=== PATIENT | male | born 1950 | race Caucasian/White ===

== ENCOUNTER → 2017-10-18 | Day surgery (SDC) | payer MEDICARE, OTHER ==
[2017-10-14 12:18] LABS: BASOPHILS # (AUTO) 0.1 (0.0-0.1); BASOPHILS % 0.7 % (0.0-1.0); EOSINOPHILS # (AUTO) 0.7 (0.0-0.4); HEMATOCRIT 42.4 % (38.2-49.6); HEMOGLOBIN 14.6 g/dL (14.0-18.0); LYMPHOCYTES # (AUTO) 2.1 (1.0-3.2); LYMPHOCYTES % 24.8 % (18.0-39.1); MEAN CORPUSCULAR HEMOGLOBIN 29.7 pg (28-32); MEAN CORPUSCULAR HGB CONC 34.4 g/dL (31-35); MEAN CORPUSCULAR VOLUME 86.2 fL (81-99); MONOCYTES # (AUTO) 0.9 (0.2-0.8); MONOCYTES % 10.3 % (4.4-11.3); NEUTROPHILS # (AUTO) 4.7 (2.1-6.9); PLATELET COUNT 250 x10e3/uL (140-360); RED BLOOD COUNT 4.92 x10e6/uL (4.3-5.7)
[2017-10-14 12:27] LABS: INR 0.95; PROTHROMBIN TIME 11.9 seconds (11.9-14.5)
[2017-10-14 12:35] LABS: ALANINE AMINOTRANSFERASE 19 IU/L (0-55); ALBUMIN 4.1 g/dL (3.5-5.0); ALBUMIN/GLOBULIN RATIO 1.2 (0.8-2.0); ALKALINE PHOSPHATASE 56 IU/L (40-150); ANION GAP 11.5 mmol/L (8-16); BLOOD UREA NITROGEN 32 mg/dL (7-26); BUN/CREATININE RATIO 27 (6-25); CALCIUM 9.9 mg/dL (8.4-10.2); CARBON DIOXIDE 26 mmol/L (22-29); CHLORIDE 104 mmol/L (98-107); CHOLESTEROL 139 MD/DL (0-199); CREATININE, SERUM 1.18 mg/dL (0.72-1.25); EST GLOMERULAR FILTRATION RATE > 60 ML/MIN (60-); GLUCOSE 130 mg/dL (74-118); HDL CHOLESTEROL 47 MG/DL (40-60); LDL CHOLESTEROL 54 MG/DL (60-130); POTASSIUM 4.5 mmol/L (3.5-5.1); SODIUM 137 mmol/L (136-145); TRIGLYCERIDES 188 MG/DL (0-149)
[2017-10-18] VITALS (19 sets, daily range): BP systolic 98–136; BP diastolic 57–83
[~2017-10-18] VITALS: Ht 172.7 cm; Wt 107.5 kg
[~2017-10-18] MED LIST: ALPRAZOLAM 0.5 MG TAB ONE; ASPIRIN 325 MG TAB ONE; ASPIRIN 81 MG CHEW TAB ONE; CLOPIDOGREL BISULFATE 75 MG TAB ONE; CRESTOR10 MG; DIPHENHYDRAMINE HCL 25 MG CAP ONE; FENTANYL CITRATE/PF 100MCG/2 ML INJ ONE; GLIMEPIRIDE2 MG PO; HEPARIN SOD (PORCINE) 1000 UNIT/ML 30ML ONE; HEPARIN SOD/SOD CHLORIDE 2,000 ML ONE; IOPAMIDOL 370 MG/ML 200 ML INFUS..BTL INJ ONE; LIDOCAINE HCL 2% LOCAL 20 ML VIAL ONE; LISINOPRIL10 MG PO; METFORMIN HCL500 MG PO; MIDAZOLAM HCL 2 MG/2 ML VIAL ONE; SODIUM CHLORIDE 0.9% 1000ML 1,000 ML ONE; VERAPAMIL HCL 2.5 MG/ML 2 ML VIAL ONE; VITAMIN B-121000 MCG PO; ZOLPIDEM TARTRA10 MG PO
--- NOTE | 2017-10-18 16:21 | Operative Report ---
DATE OF PROCEDURE: October 18, 2017 INDICATIONS 1. Chest pain. 2. Stable angina. PRE-SEDATION ASSESSMENT: Medical history, social history and previous experience with anesthesia was reviewed and documented in the preoperative medical record. Results of relevant diagnostic studies reviewed. Plan choice of anesthesia, risks, complications, benefits and alternatives discussed. Patient deemed appropriate candidate for planned choice of anesthesia. CONSENT: The benefits, risks, complications and alternatives to the procedure were discussed with the patient and his . Informed consent was obtained from patient or their surrogate. MEDICATIONS: Please see nursing notes for medication administration, administered during the procedure. DETAILS OF PROCEDURE: The patient was brought to the cardiac catheterization laboratory in a fasting state. Right wrist was prepped and draped in a sterile fashion; 1% Lidocaine was used to infiltrate the right wrist over the right radial artery. A 5-[place] sheath was placed in the right radial artery using the Seldinger technique. Coronary angiography was performed using Jamal preformed catheter to engage both the RCA and the LCA. Multiple orthogonal views were obtained of each coronary artery. The Jamal catheter was also used to cross the aortic valve and measure pressures inside the left ventricle. After review of the angiogram, decision was made to proceed with percutaneous intervention of the left circumflex artery for PCI of the left circumflex artery. A 5-[place] EBU guide was used. The lesion was crossed using Choice PT Floppy 0.014 inch guidewire. Direct stenting was performed using a Medtronic Graham 3.0 x 12 mm drug-eluting stent. Procedure was completed without any complications. All catheters were removed over a guidewire. ACT near 300 seconds was maintained using IV and interarterial boluses of Heparin. Dual antiplatelets of aspirin and Plavix were administered at the end of successful PCI. Case ended without any complications. ESTIMATED BLOOD LOSS: Approximately 50 mL. FINDINGS Left main coronary artery large caliber normal. LAD: Large vessel goes to the apex 1 large diagonal branch with 30% stenosis, otherwise luminal irregularities without any significant obstructive coronary artery disease. Left circumflex: Large vessel nondominant as two significant OM branches. OM2 is a very large vessel. There is 80% lesion in the AV circumflex just after the takeoff of the first OM branch and before the takeoff of the second OM branch. RCA: Large dominant RCA. Large RPD and RPL systems distally. Luminal irregularities and mild plaquing throughout the RCA without any significant stenoses. COMPLICATIONS: None. SPECIMEN REMOVED: None. IMPLANTS: Medtronic Graham 3.0 x 12 mm drug-eluting stent. ESTIMATED BLOOD LOSS: 50 mL. RECOMMENDATIONS 1. Usual post-PCI care until TR band removal. 2. Aspirin 81 mg and Plavix 75 mg daily for at least one year, preferably longer. Aspirin 81 mg daily thereafter lifelong. 3. Continue optimal medical therapy and risk factor control. 4. Call the office for followup in 2 weeks post procedure. Job#: [id number] PHANI
== END | disposition home or self-care (01) ==
LOC: CATH LAB 07:50
PROVIDERS: ATTEND Internal Medicine
DX: I25.118 Atherosclerotic heart disease of native coronary artery with other forms of angina pectoris (principal); E11.9 Type 2 diabetes mellitus without complications; Z01.812 Encounter for preprocedural laboratory examination; Z79.84 Long term (current) use of oral hypoglycemic drugs; Z68.35 Body mass index [BMI] 35.0-35.9, adult; Z82.49 Family history of ischemic heart disease and other diseases of the circulatory system
CPT/HCPCS: 93458; C9600; 36415; 80053; 80061; 85025; 85610; 92928; C1874; J1644; J2001; J2250; J7030; Q9967